=== PATIENT | male | born 1955 | race Caucasian/White ===

== ENCOUNTER 2017-05-14 09:48 | Observation (INO) | payer MEDICAID ==
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
--- NOTE | 2017-05-14 10:01 | CPEKG ---
Heart Rate: 54 RR Interval: 1111 P-R Interval: 168 QRSD Interval: 104 QT Interval: 444 QTC Interval: 421 P [place]: 71 QRS [place]: 31 T Wave [place]: 37 EKG Severity - BORDERLINE ECG - EKG Impression: SINUS RHYTHM EKG Impression: BORDERLINE T ABNORMALITIES, ANT-LAT LEADS Preliminary Awaiting MD Review
[2017-05-14 10:03] LABS: % IMMATURE GRANULYOCYTES 0.1 % (0.0-1.1); ABSOLUTE IMMATURE GRANULOCYTES 0.01 10^3/uL (0.00-0.10); ADD DIFF? NO; ADD MORPH? NO; ADD SCAN? NO; ATYPICAL LYMPHOCYTE FLAG 30 (0-99); FRAGMENT RBC FLAG 0 (0-99); LEFT SHIFT FLG 0 (0-99); LIPEMIA HEMOLYSIS FLAG 90 (0-99); MEAN CELL HEMOGLOBIN 33.5 pg (27.9-34.1); MEAN CELL HEMOGLOBIN CONCENTR. 34.6 g/dL (32.4-36.7); MEAN CELL VOLUME 96.8 fL (81.5-99.8); MEAN PLATELET VOLUME 11.5 fL (8.7-11.7); PLATELET CLUMPS FLAG 0 (0-99); PLATELET COUNT 252 10^3/uL (150-400); RED BLOOD CELL COUNT 5.37 10^6/uL (4.40-6.38); RED CELL DISTRIBUTION WIDTH 12.9 % (11.5-15.2)
[2017-05-14 10:14] LABS: ANION GAP 14 mEq/L (8-16); CARBON DIOXIDE 29 mEq/l (22-31); CHLORIDE 101 mEq/L (97-110); GLOMERULAR FILTRATION RATE > 60; GLUCOSE 113 mg/dL (70-100); POTASSIUM 4.2 mEq/L (3.5-5.2); SODIUM 144 mEq/L (134-144)
[2017-05-14 10:26] LABS: TROPONIN I < 0.012 ng/mL (0.000-0.034)
[2017-05-14] MEDS ORDERED: ASPIRIN 81 MG CHEWABLE TAB PO ONE (14:19)
--- NOTE | 2017-05-14 14:21 | CPEKG ---
Heart Rate: 50 RR Interval: 1200 P-R Interval: 168 QRSD Interval: 96 QT Interval: 456 QTC Interval: 416 P [place]: 71 QRS [place]: 39 T Wave [place]: 118 EKG Severity - ABNORMAL ECG - EKG Impression: SINUS RHYTHM EKG Impression: BORDERLINE INFERIOR Q WAVES EKG Impression: NONSPECIFIC T ABNORMALITIES, ANT-LAT LEADS Preliminary Awaiting MD Review
[2017-05-14] MEDS ORDERED: HEPARIN/DEXTROSE 500 ML IV SCH ×2 (15:15→16:45)
[2017-05-14] MEDS ORDERED: ONDANSETRON DISINTEGRATING 4 MG TAB PO PRN (15:29)
[2017-05-14] MEDS ORDERED: ONDANSETRON 4 MG/2 ML VIAL IVP PRN (15:29)
[2017-05-14] MEDS ORDERED: TEMAZEPAM 15 MG CAP PO PRN (15:29)
[2017-05-14] MEDS ORDERED: ACETAMINOPHEN 325 MG TAB PO PRN ×2 (15:29)
[2017-05-14] MEDS ORDERED: NITROGLYCERIN 0.4 MG BTL SL PRN (15:29)
[2017-05-14] MEDS ORDERED: PERFLUTREN LIPID MICROSPHERES 1.1 MG/ML VIAL IV ONE ×2 (15:30)
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
[2017-05-14] MEDS ORDERED: HEPARIN 10,000 UNIT/10 ML MDV IVP PRN (16:35)
[2017-05-14] MEDS ORDERED: HEPARIN 10,000 UNIT/10 ML MDV IVP ONE (16:35)
--- NOTE | 2017-05-14 17:17 | GCON ---
[f rep st] CONSULTATION CARDIOLOGY CONSULTATION REASON FOR CONSULTATION: We were asked by Dr. Giovani Lott to evaluate the patient for his episode of chest pain and abnormal ECG today. HISTORY OF PRESENT ILLNESS: The patient is a 62-year-old male, who has a reported history of previous WI, hypertension, dyslipidemia, who presents to the [facility] via EMS. He was brought in after noting left- sided chest discomfort that radiated into his left arm. He describes it as a moderate to severe pressure sensation that started 20-30 minutes prior to presenting to the Emergency Department. He reports pain has spontaneously resolved after arrival to the Emergency Department. He denies any other episodes similar to this recently. He also denies any PND, orthopnea, dyspnea, presyncope, syncope. He has not noted any associated nausea, diaphoresis, or dyspnea. He reports he is mostly active with riding his bike. He has not noted any episodes of chest discomfort with biking. He is smoking about 5 cigars per day. He has also been noting a cough that he refers to as the "kennel cough" as he lives at the senior living, and others in the senior living have been coughing as well. REVIEW OF SYSTEMS: As per HPI. A complete 10-point review of systems was obtained and is negative except for what is dictated PAST MEDICAL HISTORY: 1. Hypertension. Recently had stop therapies and now has resumed lisinopril. 2. Dyslipidemia, had run out of atorvastatin, but now is back on it. 3. WI 3 years ago. This was in [place], [place]. He reports that the vessel was "too low" to be amenable for PCI. SOCIAL HISTORY: The patient is homeless. He denies any alcohol or drug intake. He is smoking 5 cigars a day. He used to smoke 3 packs per day back in 80s, and he did that for a few years. FAMILY HISTORY: Positive for heart disease with father dying of an WI. PHYSICAL EXAM: VITAL SIGNS: BP of 149/85, heart rate of 56, respirations 20, O2 saturation 95% on room air, temp of 97.9 degrees Fahrenheit. GENERAL: He is a very pleasant male in no apparent distress. HEENT: Normocephalic, atraumatic. His eyes are without scleral icterus. He is edentulous. NECK: Supple with no JVD. No carotid bruit auscultated. HEART: Regular rate and rhythm. No rubs, gallops, or murmurs. LUNGS: Diminished with rhonchi and wheezing, more pronounced in the right lung [place]. ABDOMEN: Soft, aortic aneurysm feels normal in size. There is normal bowel sounds present foot. : No Khan present. SKIN: Warm and dry. PT and DP pulses are diminished, but there is no edema present. PSYCH: Normal mood and affect given the situation. NEURO: He appears grossly oriented. LABORATORY DATA: CBC with WBC 6.9, hemoglobin 18, hematocrit 52, platelet count of 252. BMP with sodium 144, potassium 4.2, chloride 101, CO2 29, BUN 18 , creatinine 1, glucose of 113. Troponin initially less than 0.012, then 0.08. A 12-lead ECG, personally interpreted, shows sinus rhythm with diffuse ST-T wave abnormalities with biphasic T-wave across the precordium. There are inferior Q's present. IMPRESSION AND PLAN: The patient is a 62-year-old male with past medical history of myocardial infarction, hypertension, and dyslipidemia, who presents for evaluation of chest discomfort. 1. Chest discomfort somewhat worrisome for acute coronary syndrome. He is currently pain free. His troponin is minimally elevated. We will plan to admit for observation. We will start him on a heparin drip. Plan is for cardiac catheterization for risk stratification. He will be maintained on aspirin therapy. We will also add a beta stuart to his medications. 2. Hypertension. Blood pressure is elevated, which may be situational. His home lisinopril will be continued through this admission. 3. Dyslipidemia. Lipids will be checked in a.m. 4. Tobacco abuse. The patient is counseled on tobacco cessation to reduce cardiovascular risk. /[id number]/MODL MTDD
--- NOTE | 2017-05-14 17:21 | ECHO ---
[email or web address] [address] Main: [phone] Fax: Transthoracic Echocardiogram Name: CHALINO BECKFORD MR#: [id number] Study Date: 05/14/2017 Study Time: 03:07 PM Date of : 1955 Age: 62 year(s) Height: 185.4 cm (73 in.) Weight: 84.37 kg (186 lb.) BSA: 2.09 m2 Gender: Male Examination: Limited Echo Indication: Limited echo to assess for WMA in patient with elevated troponins. Image Quality: Adequate Contrast: 0.330 mg I.V. dose of Definity was administered to improve endocardial border definition. Requested by: Giovani Lott BP: / Heart Rate: Rhythm: Indication: Limited echo to assess for WMA in patient with elevated troponins. Procedure Staff Deputy Fire Chief: Sharyn Mcghee Reading Physician: Jakob Cook Requesting Provider: Conclusions: No pericardial effusion preserved left ventricular systolic function with apical akinetic segment no LV thrombus Measurements: Chambers Valvular Assessment AV/MV Valvular Assessment TV/PV Normal Normal Normal Name Value Range Name Value Range Name Value Range IVSd (2D): 1.0 cm (0.6 cm-1.1 cm) LVDd (2D): 5.7 cm (4.2 cm-5.9 cm) LVDs (2D): 3.7 cm (2.1 cm-4 cm) LVPWd (2D): 1.1 cm (0.6 cm-1 cm) LVEF (BP): 55 % (>=55 %) Continued Measurements: Additional Vessels Name Value Ao Ascendin.5 cm Findings: Left Ventricle: Patient: CHALINO BECKFORD Study Date: 05/14/2017 Page 1 of 2 03:07 PM Left ventricle upper limits of normal. Normal global systolic LV function. EF is 55 %. No LV apical thrombus. Small area of apical akinesis; definity used to rule out apical thrombus. The remaining asher contract normally. . (No Signature Object) Patient: CHALINO BECKFORD Study Date: 05/14/2017 Page 2 of 2 03:07 PM [id number]
[2017-05-14] MEDS: LORazepam 1 MG TAB PO PRN (17:40)
[2017-05-14 18:12] LABS: APTT 32.3 SEC (23.0-38.0); INR 0.99 (0.83-1.16)
[2017-05-15] MEDS: METOPROLOL TARTRATE 25 MG TAB PO SCH ×2 (01:13→13:58)
[2017-05-15] MEDS ORDERED: diphenhydrAMINE 25 MG CAP PO ONE ×2 (06:00→09:08)
[2017-05-15] MEDS ORDERED: NS 1,000 ML IV ONE (06:00)
[2017-05-15] MEDS ORDERED: FAMOTIDINE 20 MG TAB PO ONE (06:00)
[2017-05-15] MEDS ORDERED: ASPIRIN EC 325 MG TAB PO ONE ×2 (06:00→09:08)
[2017-05-15] MEDS ORDERED: DIAZEPAM 5 MG TAB PO ONE (06:00)
[2017-05-15 06:21] LABS: % IMMATURE GRANULYOCYTES 0.5 % (0.0-1.1); ABSOLUTE IMMATURE GRANULOCYTES 0.04 10^3/uL (0.00-0.10); ADD DIFF? NO; ADD MORPH? NO; ADD SCAN? NO; ATYPICAL LYMPHOCYTE FLAG 0 (0-99); FRAGMENT RBC FLAG 0 (0-99); HEMOGLOBIN 15.6 g/dL (13.7-17.5); LEFT SHIFT FLG 0 (0-99); LIPEMIA HEMOLYSIS FLAG 90 (0-99); MEAN CELL HEMOGLOBIN 33.2 pg (27.9-34.1); MEAN CELL HEMOGLOBIN CONCENTR. 34.7 g/dL (32.4-36.7); MEAN CELL VOLUME 95.7 fL (81.5-99.8); MEAN PLATELET VOLUME 11.3 fL (8.7-11.7); PLATELET CLUMPS FLAG 0 (0-99); PLATELET COUNT 221 10^3/uL (150-400); RED CELL DISTRIBUTION WIDTH 12.7 % (11.5-15.2)
[2017-05-15 06:29] LABS: INR 1.05 (0.83-1.16); PROTIME(PATIENT) 13.6 SEC (12.0-15.0)
[2017-05-15 06:39] LABS: ANION GAP 9 mEq/L (8-16); CARBON DIOXIDE 23 mEq/l (22-31); CHLORIDE 108 mEq/L (97-110); CHOLESTEROL 105 mg/dL (140-220); CREATININE 0.9 mg/dL (0.7-1.3); GLOMERULAR FILTRATION RATE > 60; GLUCOSE 100 mg/dL (70-100); HIGH DENSITY LIPOPROTEIN 35 mg/dL (40-65); LDL/HDL RATIO 1.69 RATIO (1.00-3.64); LOW DENSITY LIPOPROTEIN 59 mg/dL (80-100); MAGNESIUM 1.8 mg/dL (1.6-2.3); NON-HIGH DENSITY LIPOPROTEIN 70 mg/dL (90-129); POTASSIUM 4.4 mEq/L (3.5-5.2); SODIUM 140 mEq/L (134-144); TRIGLYCERIDE 55 mg/dL (40-150); VERY LOW DENSITY LIPOPROTEINS 11 mg/dL (8-25)
[2017-05-15 06:45] LABS: APTT 95.1 SEC (23.0-38.0)
[2017-05-15] MEDS ORDERED: LIDOCAINE 1% 300 MG/30 ML SDV ONE (08:53)
[2017-05-15] MEDS ORDERED: fentaNYL 100 MCG/2 ML INJ ONE (08:54)
[2017-05-15] MEDS ORDERED: IOPAMIDOL (ISOVUE-370) 150 ML BTL IV ONE (08:55)
[2017-05-15] MEDS ORDERED: MIDAZOLAM 2 MG/2 ML VIAL ONE (08:55)
[2017-05-15] MEDS ORDERED: LISINOPRIL 10 MG TAB PO SCH (09:00)
[2017-05-15] MEDS ORDERED: ATORVASTATIN CALCIUM 40 MG TAB PO SCH (09:00)
[2017-05-15] MEDS ORDERED: DIAZEPAM 5 MG TAB ONE (09:08)
[2017-05-15] MEDS ORDERED: FAMOTIDINE 20 MG TAB ONE (09:08)
--- NOTE | 2017-05-15 09:11 | PDHPUP ---
History & Physical Update H&P update statement: This history and physical update is based on an assessment of the patient which was completed after admission or registration (within 24 hours), but prior to the surgery/procedure. H&P update: H&P reviewed & patient examined, no change in patient's condition since H&P completed (Apical akinetic segment. No thrombus by Echo, rising troponin.)
--- NOTE | 2017-05-15 09:11 | PDPROPOC ---
Sedation Plan of Care Sedation Plan of Care: vital signs stable, mental status noted, patient educated of risks, benefits, alternatives, patient can tolerate sedation ASA Classification: ASA 2 Planned drugs: fentanyl, midazolam Mallampati Score: Class 1 Mallampati Reference Image: Patient passed 3-3-2 rule?: Yes
[2017-05-15] MEDS ORDERED: HEPARIN 10,000 UNIT/10 ML MDV ONE (09:43)
[2017-05-15] MEDS ORDERED: VERAPAMIL 5 MG/2 ML VIAL ONE (09:43)
[2017-05-15] MEDS ORDERED: ATROPINE SULFATE 1 MG/10 ML SYR IVP PRN (10:19)
--- NOTE | 2017-05-15 10:22 | PDDXCAT ---
Diagnostic Cath Note - . Date: 05/15/17 Web Ui Developer: Joey Indication: other (Non-Q-wave myocardial infarction) - Procedure Access: left wrist Procedure: left heart catheterization, coronary angiography, left ventriculogram - Materials Left Heart Cath size: 5F Left Heart Cath materials: JL3.5, JR4.0, pigtail - Findings-Left Heart Catheterization LM: Unobstructed LAD: Unobstructed LCX: Dominant: Unobstructed RCA: Anterior takeoff, non dominant, unobstructed EDP: 12 mm of mercury LVEF: 60% with apical akinetic segment Wall motion: Apical akinesis Complications: None Estimated blood loss: <50ml Closure method: TR Band Assessment: 1. Mild nonobstructive atherosclerotic cardiovascular disease. 2. Prior apical myocardial infarction with preserved LV systolic function. Procedure: Please see attached computer report. Contrast: 80 cc. Sedation: 2 mg Versed, 50 mcg fentanyl. Radiation: 5.6 minutes fluoroscopy, 434 mGy Plan: Aggressive medical therapy with beta-stuart, aspirin, statin. Patient Problems: Problems Problem Status Onset Chest pain Acute Elevated troponin Acute
--- NOTE | 2017-05-15 10:50 | CPEKG ---
Heart Rate: 46 RR Interval: 1304 P-R Interval: 172 QRSD Interval: 96 QT Interval: 488 QTC Interval: 427 P [place]: 70 QRS [place]: 55 T Wave [place]: 89 EKG Severity - ABNORMAL ECG - EKG Impression: SINUS BRADYCARDIA EKG Impression: ABNORMAL T, CONSIDER ISCHEMIA, ANT-LAT LEADS Electronically Signed By: Doug Quiros 17-May-2017 09:15:16
[2017-05-15 13:10] VITALS: TEMP 97.8
[2017-05-15] MEDS: LORazepam 1 MG TAB PO PRN (13:44)
--- NOTE | 2017-05-15 15:38 | PDDCSUM ---
Discharge Summary Discharge Summary: Dates of service 05/14-05/15/17 Consultations: cardiology Procedures performed: cardiac cath Hospital course by problem: # chest pain: with trop elevation and ecg changes concerning for ischemia. Taken to cath with non obstructive CAD found and no intervention needed. Will need aggressive secondary prevention with asa, statin, BB. # HTN: controlled on lisinopril # HLD: continue on statin # tobacco use: recommending cessation DC home f/u with PCP > 35 min spent in dc of patient
--- NOTE | 2017-05-15 15:48 | ASMTCASEMG ---
Living Arrangements What is your living Answers: Alone arrangement? Who do you live with? Type Of Residence What kind of residence do Answers: Homeless you live in? Discharge Plan Comments Coordination Status Comments Notes: Chart reviewed and spoke w/ CHERRY Soares. Pt is a 62 y/o homeless man admitted for elevated trop. CM met w/ pt and gf for dispo planning. Pt currently resides at the homeless retirement. CM offered to give pt resources. Pt is not interested in this time. CM available for changes. Date Signed: 05/15/2017 03:48 PM Electronically Signed By:WEN Castillo
[2017-05-15] MEDS ORDERED: BENZONATATE 100 MG CAP PO PRN (16:41)
[2017-05-15 16:46] VITALS: BP 135/79; PULSE 56; RESP 18; O2SAT 92
[2017-05-15] MEDS ORDERED: guaiFENesin/CODEINE PHOS 10 ML UDCUP PO ONE (17:00)
== END 2017-05-15 18:00 | disposition home or self-care (01) ==
LOC: F2W 16:11
PROVIDERS: ADMIT Internal Medicine; ATTEND Internal Medicine
PROC: B2151ZZ Fluoroscopy of Left Heart using Low Osmolar Contrast (ICD-10-PCS; principal; 2017-05-14)
PROC: 4A023N7 Measurement of Cardiac Sampling and Pressure, Left Heart, Percutaneous Approach (ICD-10-PCS; principal; 2017-05-14)
PROC: B2111ZZ Fluoroscopy of Multiple Coronary Arteries using Low Osmolar Contrast (ICD-10-PCS; principal; 2017-05-14)
DX: R07.89 Other chest pain (principal); R79.89 Other specified abnormal findings of blood chemistry; I25.10 Atherosclerotic heart disease of native coronary artery without angina pectoris; R05 Cough; I25.2 Old myocardial infarction; I10 Essential (primary) hypertension; E78.5 Hyperlipidemia, unspecified; F17.290 Nicotine dependence, other tobacco product, uncomplicated; Z59.0 Homelessness
CPT/HCPCS: 71020; 93005; 93458; 99285; C1769; C8924; G0378; 85520-90; J1644; J2250; J3010; Q9957; Q9967

== ENCOUNTER 2017-09-13 12:32 | Emergency (ER) | payer MEDICAID ==
[2017-09-13 12:39] VITALS: TEMP 97.3
--- NOTE | 2017-09-13 13:40 | EDPHY ---
H & P Stated Complaint: headache and sinus pressure for 1 week Time Seen by Provider: 09/13/17 13:40 HPI/ROS: CHIEF COMPLAINT: Sinus pressure, frontal headache HISTORY OF PRESENT ILLNESS: The patient presents to the ED with a one-week history of sinus pressure and a mild frontal headache. The patient reports rhinorrhea and purulent nasal discharge. He denies significant fever or cough. The patient does have a history of coronary artery disease. He has no history of exertional chest pain or shortness of breath. The patient does report he is a daily smoker. The patient denies additional significant medical problems. He specifically denies chest pain or abdominal pain. The patient has no acute neurologic complaints. REVIEW OF SYSTEMS: A comprehensive 10 point review of systems is otherwise negative aside from elements mentioned in the history of present illness. Source: Patient Exam Limitations: No limitations - Medical/Surgical History Hx Asthma: No Hx Chronic Respiratory Disease: No Hx Diabetes: No Hx Cardiac Disease: Yes Hx Renal Disease: No Hx Cirrhosis: No Hx Alcoholism: Yes Hx HIV/AIDS: No Hx Splenectomy or Spleen Trauma: No Other PMH: PMH: cardiac [place] - Social History Smoking Status: Heavy smoker - Physical Exam Exam: General Appearance: Alert, no distress Eyes: Pupils equal and round no pallor or injection ENT, Mouth: Maxillary sinus tenderness bilaterally Respiratory: There are no retractions, lungs are clear to auscultation Cardiovascular: Regular rate and rhythm Gastrointestinal: Abdomen is soft and nontender, no masses, bowel sounds normal Neurological: A&O, normal motor function, normal sensory exam, normal cranial nerves Skin: Warm and dry, no rashes Musculoskeletal: Neck is supple nontender Extremities: symmetrical, full range of motion Constitutional: Initial Vital Signs Temperature (C) 36.3 C 09/13/17 12:37 Heart Rate 66 09/13/17 12:37 Respiratory Rate 18 09/13/17 12:37 Blood Pressure 152/94 H 09/13/17 12:37 O2 Sat (%) 95 09/13/17 12:37 O2 Delivery Mode Room Air Allergies/Adverse Reactions: No Known Allergies Allergy (Verified 09/13/17 12:36) Home Medications: Medication Instructions Recorded NK [No Known Home Meds] 09/13/17 Medical Decision Making ED Course/Re-evaluation: The patient presents to the ED with likely bacterial sinusitis with greater than 7 days of symptoms and purulent discharge. The patient is currently a smoker. He will be started on Augmentin. He is advised to continue ibuprofen as needed for management of his pain. The patient should follow up with his primary care provider. He has no clinical evidence of meningitis in the emergency department and is neurologically intact. Departure - Departure Disposition: Home, Routine, Self-Care Clinical Impression: Sinusitis Condition: Good Instructions: Sinusitis (ED) Additional Instructions: 1. Please take antibiotics as directed. 2. Return to the ED for worsening pain, fever, vomiting or other concerns. 3. Please schedule a follow-up appointment with your primary care provider for a recheck. Referrals: [facility],. [Clinic] - As per Instructions
[2017-09-13 14:28] VITALS: BP 156/92; PULSE 64; RESP 16; O2SAT 96
== END 2017-09-13 14:27 | disposition home or self-care (01) ==
DX: J32.9 Chronic sinusitis, unspecified (principal); F17.200 Nicotine dependence, unspecified, uncomplicated

== ENCOUNTER 2018-01-19 12:24 | Emergency (ER) | payer OTHER, MEDICAID ==
--- NOTE | 2018-01-19 13:48 | EDPHY ---
H & P Smoking Status: Heavy smoker Time Seen by Provider: 01/19/18 13:25 HPI/ROS: CHIEF COMPLAINT: Right leg pain HISTORY OF PRESENT ILLNESS: The patient is a 63-year-old male with a history of DVT here with a chief complaint of right leg pain for the last 2 days. States the pain starts at his thigh and extends down to the mid tib-fib region. He denies any numbness or weakness in the leg. There was no injury. He has had no fever. Said no joint swelling. Denies any chest pain or shortness of breath. He does have a prior history DVT and states he is supposed to be taking blood thinners but currently is not. He denies history of cardiac arrhythmia. REVIEW OF SYSTEMS: Constitutional: No fever, no chills. Eyes: No discharge. ENT: No sore throat. Cardiovascular: No chest pain, no palpitations. Respiratory: No cough, no shortness of breath. Gastrointestinal: No abdominal pain, no vomiting. Genitourinary: No hematuria. Musculoskeletal: No back pain. Skin: No rashes. Neurological: No headache. (Wm Goldman) Physical Exam: General Appearance: Alert and no distress. Eyes: Pupils equal and round no injection. Respiratory: Chest is nontender, lungs are clear to auscultation. Cardiac: regular rate and rhythm. Gastrointestinal: Abdomen is soft and nontender, no masses, bowel sounds normal. Musculoskeletal: Neck is supple and nontender. Extremities have full range of motion and are nontender. No lower extremity edema. Pedal pulses strong bilaterally. No erythema. Skin: No rashes or lesions. (Wm Goldman) Constitutional: Initial Vital Signs Temperature (C) 36.3 C 01/19/18 12:28 Heart Rate 60 01/19/18 12:28 Respiratory Rate 16 01/19/18 12:28 Blood Pressure 169/95 H 01/19/18 12:28 O2 Sat (%) 96 01/19/18 12:28 O2 Delivery Mode Room Air Allergies/Adverse Reactions: No Known Allergies Allergy (Verified 01/19/18 12:27) Home Medications: Medication Instructions Recorded NK [No Known Home Meds] 01/19/18 Medical Decision Making - Diagnostics Imaging Results: Imaging Impressions Extremity Venous Study 01/19/18 13:32 Impression: No deep venous thrombosis right leg. Findings and recommendations discussed with Emergency Department physician, Dr. Inna Curtis at 14:14 hour, 01/19/2018. Final report concurs with initial preliminary interpretation. ED Course/Re-evaluation: 63-year-old male here with 2 days of right lower extremity pain that is intermittent. He states it is worse with ambulation. Exam reveals a normal- appearing lower extremity with full range of motion and no signs of infection. If ultrasound is negative for DVT. We discussed follow up with his primary care physician for further evaluation and discussion of anticoagulation for his history of DVT. (Wm Goldman) Differential Diagnosis: DVT, septic joint, peripheral vascular disease, cellulitis (Wm Goldman) Other Provider: The patient was evaluated and managed by the physician hospital administrative assistant. My signature indicates that I have reviewed this chart and I agree with the findings and plan of care as documented. I am the secondary supervising physician. (Inna Curtis) Departure - Departure Disposition: Home, Routine, Self-Care Condition: Good Instructions: Leg Pain (ED) Additional Instructions: Please follow up with her primary care physician in the next week to discuss further evaluation for leg pain. He additionally in the to discuss whether not he should be taking any blood thinners for history of blood clots and history of heart attack. Return to the ER for any fever, worsening pain, joint swelling or other worrisome symptoms. Referrals: NONE *PRIMARY CARE P,. [Primary Care Provider] - As per Instructions
[2018-01-19 14:47] VITALS: BP 134/95
== END 2018-01-19 14:51 | disposition home or self-care (01) ==
DX: M79.604 Pain in right leg (principal); F17.200 Nicotine dependence, unspecified, uncomplicated

== ENCOUNTER 2019-01-23 12:05 | Emergency (ER) | payer OTHER, MEDICAID ==
--- NOTE | 2019-01-23 12:29 | EDPHY ---
HPI/HX/ROS/PE/MDM Narrative: CHIEF COMPLAINT: Right upper quadrant abdominal pain HPI: The patient is a 64-year-old male with a history of a prior IA who complains of approximately 1 month of right upper quadrant pain. The patient is notably poor historian and he attributes this to short-term memory loss although he does not appear to be trying actively very hard to give a history. He states that the pain has been present for 1 month and will sometimes get worse with food although he tells me that he is unable to fully answer my question as to all the things that may make it worse. He states that a friend of his recently had their gallbladder taken out and recommended that he get his gallbladder checked out. He denies vomiting. He denies fever. REVIEW OF SYSTEMS: Aside from elements discussed in the HPI, a comprehensive 10-point review of systems was reviewed and is negative. This is quite limited. PMH: Includes prior heart attack. SOCIAL HISTORY: Patient smokes cigarettes. Denies drug abuse. PHYSICAL EXAM: General:Patient is alert, in no acute distress. ENT:Eyes are normal to inspection. ENT inspection normal. Neck: Normal inspection. Full range of motion. Respiratory:No respiratory distress. Breath sounds normal bilaterally. Cardiovascular: Regular rate and rhythm. Strong peripheral pulses. Normal cap refill. Abdomen:The abdomen is nontender to palpation. There are no peritoneal signs. There are normal bowel sounds. Back: Normal to inspection. No tenderness to palpation. Skin: Normal color. No rash. Warm and dry. Extremities: Normal appearance. Full range of motion. Neuro: Oriented x3. Normal motor function. Normal sensory function. MDM: This patient presents with one month of abdominal pain and a desire to "get gallbladder checked out." US of RUQ is negative for signs of cholecystitis or other abnormality. Workup significant only for mild isolated elevation of lipase. I ordered a CTAP to ensure no pancreatic mass or other abnormality. This study was unfortunately suboptimal as patient kept moving during study. Study was repeated but still suboptimal. No large mass or other finding noted. I informed patient of these results as well as need to follow-up with a primary care doctor for further evaluation. As he is not actively vomiting and looks quite comfortable with symptoms having been present for a month, I have low suspicion that this represents acute pancreatitis. - Data Points Imaging Results: Imaging Impressions Chest X-Ray 01/23/19 12:28 Impression: Findings most consistent with airways disease with no superimposed acute abnormality identified. Abdomen Ultrasound 01/23/19 12:37 Impression: The gallbladder is contracted and not optimally assessed although there are no secondary findings to support a clinical diagnosis of acute cholecystitis. Results called and discussed with Giovani Lott MD on 01/23/2019 at 13:42. Imaging: Discussed imaging studies w/ call box wirer Radiologist Laboratory Results: Laboratory Results 01/23/19 12:27 01/23/19 12:27 01/23/19 01/23/19 12:27 12:27 WBC 6.99 10^3/uL 10^3/uL (3.80-9.50) RBC 5.12 10^6/uL 10^6/uL (4.40-6.38) Hgb 16.6 g/dL g/dL (13.7-17.5) Hct 48.1 % % (40.0-51.0) MCV 93.9 fL fL (81.5-99.8) MCH 32.4 pg pg (27.9-34.1) MCHC 34.5 g/dL g/dL (32.4-36.7) RDW 14.1 % % (11.5-15.2) Plt Count 242 10^3/uL 10^3/uL (150-400) MPV 10.7 fL fL (8.7-11.7) Neut % (Auto) 52.8 % % (39.3-74.2) Lymph % (Auto) 36.9 % % (15.0-45.0) [place] % (Auto) 7.9 % % (4.5-13.0) Eos % (Auto) 1.4 % % (0.6-7.6) Baso % (Auto) 0.7 % % (0.3-1.7) Nucleat RBC Rel Count 0.0 % % (0.0-0.2) Absolute Neuts (auto) 3.69 10^3/uL 10^3/uL (1.70-6.50) Absolute Lymphs (auto) 2.58 10^3/uL 10^3/uL (1.00-3.00) Absolute Monos (auto) 0.55 10^3/uL 10^3/uL (0.30-0.80) Absolute Eos (auto) 0.10 10^3/uL 10^3/uL (0.03-0.40) Absolute Basos (auto) 0.05 10^3/uL 10^3/uL (0.02-0.10) Absolute Nucleated RBC 0.00 10^3/uL 10^3/uL (0-0.01) Immature Gran % 0.3 % % (0.0-1.1) Immature Gran # 0.02 10^3/uL 10^3/uL (0.00-0.10) Sodium 138 mEq/L mEq/L (135-145) Potassium 4.0 mEq/L mEq/L (3.5-5.2) Chloride 104 mEq/L mEq/L (97-110) Carbon Dioxide 26 mEq/l mEq/l (22-31) Anion Gap 8 mEq/L mEq/L (6-14) BUN 15 mg/dL mg/dL (7-23) Creatinine 0.9 mg/dL mg/dL (0.7-1.3) Estimated GFR > 60 Glucose 94 mg/dL mg/dL (70-100) Calcium 9.7 mg/dL mg/dL (8.5-10.4) Total Bilirubin 0.6 mg/dL mg/dL (0.1-1.4) Conjugated Bilirubin 0.1 mg/dL mg/dL (0.0-0.5) Unconjugated Bilirubin 0.5 mg/dL mg/dL (0.0-1.1) AST 25 IU/L IU/L (17-59) ALT 22 IU/L IU/L (21-72) Alkaline Phosphatase 85 IU/L IU/L (38-126) Total Protein 7.1 g/dL g/dL (6.3-8.2) Albumin 4.6 g/dL g/dL (3.5-5.0) Lipase 424 IU/L H IU/L (23-300) General Time Seen by Provider: 01/23/19 12:23 Initial Vital Signs: Initial Vital Signs Temperature (C) 36.5 C 01/23/19 12:14 Heart Rate 64 01/23/19 12:14 Respiratory Rate 18 01/23/19 12:14 Blood Pressure 193/107 H 01/23/19 12:14 O2 Sat (%) 98 01/23/19 12:14 O2 Delivery Mode Room Air Allergies/Adverse Reactions: No Known Allergies Allergy (Verified 01/23/19 12:14) Home Medications: Medication Instructions Recorded NK [No Known Home Meds] 01/19/18 Departure - Departure Disposition: Home, Routine, Self-Care Clinical Impression: Abdominal pain Condition: Good Instructions: Acute Abdominal Pain (ED) Additional Instructions: Follow-up with your primary doctor within one month for repeat labs and possibly a repeat CT. Return to the ED for worsening abdominal pain, vomiting, fever or other concerns. Referrals: NONE *PRIMARY CARE P,. [Primary Care Provider] - As per Instructions
[2019-01-23 12:42] LABS: PLATELET COUNT 242 10^3/uL (150-400)
[2019-01-23] MEDS ORDERED: IOPAMIDOL (ISOVUE-300) 100 ML BTL ONE (14:02)
[2019-01-23 15:10] VITALS: BP 184/110
--- NOTE | 2019-01-23 16:40 | ASMTCMCOM ---
CM Note CM Note Notes: CM requested to assist pt with establishing a local PCP in order to follow-up and get repeat labs and imaging within one month. Spoke w/pt at bedside and he states he has been seen at [facility] in the past but would prefer to be seen elsewhere if possible. [facility] and [facility] cards. Pt states he will reach out tomorrow. This CM also to send e-mail referral to [facility] and request they reach out to the pt as well. Pt's cell # is [phone]. Pt states he is staying at the [facility] and also has a 25' RV. Pt states he is working at a [employer]. CM available for further assistance if needed. Date Signed: 01/23/2019 04:39 PM Electronically Signed By:Shae Loza RN
== END 2019-01-23 15:19 | disposition home or self-care (01) ==
DX: R10.11 Right upper quadrant pain (principal)
CPT/HCPCS: 71046; 74177; 76705; 99285; Q9967